=== PATIENT | female | born 1980 | race Caucasian/White ===

== ENCOUNTER → 2020-06-08 14:41 | Outpatient (CLI) | payer OTHER, SELFPAY ==
--- NOTE | 2020-06-08 14:45 | BI_ITS ---
MAMMOGRAPHY - BILATERAL SCREENING REASON FOR EXAM: Female, 40 years old. Routine annual screening examination. PERTINENT HISTORY: Non-contributory. TECHNIQUE: Digital bilateral breast rachel (3D mammographic acquisition) in the CC and MLO projections. 2-D mediolateral oblique (MLO) and craniocaudad (CC) views of both breasts were obtained. CAD: Full Field Digital Mammography with Computer Added Detection was performed. COMPARISON: None. Baseline examination. FINDINGS: Breast Composition: The breasts are heterogeneously dense, which may obscure small masses. There are no dominant masses or suspicious calcifications. No other significant abnormalities are identified. BI/SCRN MAMM (CAD)W/RACHEL BILAT IMPRESSION: Negative screening mammogram. Yearly followup mammogram recommended. (A) ASSESSMENT CATEGORY: BIRADS Category 1: Negative. A letter regarding these results will be sent to the patient by the facility within 30 days. Approximately 10% of breast cancers are not detected by mammography. A normal mammogram should not delay biopsy of a clinically suspicious abnormality. [id number] Electronically Signed: Sumanth Davidson MD at 9:58 EDT , Service support ,
== END ==
PROVIDERS: PCP Family Medicine; Referring Provider Family Medicine; Visit Provider Family Medicine
DX: Z12.31 Encounter for screening mammogram for malignant neoplasm of breast (principal)
CPT/HCPCS: 77063; 77067

== ENCOUNTER → 2022-05-19 | Outpatient (CLI) | payer OTHER, SELFPAY ==
[2022-05-19 15:04] LABS: Mucous, Urine 0 SEEN /hpf (<or=2+); Red Blood Cells-Urine 0 SEEN /hpf (0-5)
[2022-05-19 15:14] LABS: Color, Urine Yellow (Yellow); Glucose, Dipstick Normal (Normal); Ketone-Dipstick Negative (Negative); Leukocyte Esterase-Dipstick 25 /ul (Negative); Nitrite-Dipstick Negative (Negative); Occult Blood-Urine 25 /ul (Negative); Protein-Dipstick 15 mg/dl (Negative); Specific Gravity, Urine 1.015 (1.002-1.030); Urine Bilirubin Dipstick Negative (Negative); Urine Clarity Clear (Clear); Urine Urobilinogen Normal (Normal)
[2022-05-19 15:20] LABS: Bacteria 1+ /hpf (None Seen); Squamous Epithelial Cells - UA 5-10 SEEN /hpf (5-10); White Blood Cells 5-10 SEEN /hpf (0-5)
== END | disposition home or self-care (01) ==
PROVIDERS: PCP Family Medicine; Visit Provider Physician Assistant
DX: R35.0 Frequency of micturition (principal)
CPT/HCPCS: 81001; 87086; 87088

== ENCOUNTER → 2023-11-18 | Outpatient (CLI) | payer OTHER, SELFPAY ==
--- NOTE | 2023-11-18 14:59 | BI_ITS ---
MAMMOGRAPHY - BILATERAL SCREENING REASON FOR EXAM: Female, 43 years old. Routine annual screening examination. PERTINENT HISTORY: Non-contributory. TECHNIQUE: Digital bilateral breast rachel (3D mammographic acquisition) in the CC and MLO projections. 2-D mediolateral oblique (MLO) and craniocaudad (CC) views of both breasts were obtained. CAD: Full Field Digital Mammography with Computer Added Detection was performed. COMPARISON: Comparison is made with prior study June 08, 2020. FINDINGS: Breast Composition: The breasts are heterogeneously dense, which may obscure small masses. There are no dominant masses or suspicious calcifications. No other significant abnormalities are identified. There has been no significant change since the prior study. BI/SCRN MAMM (CAD)W/RACHEL BILAT IMPRESSION: Stable bilateral screening mammogram. Yearly follow-up mammogram recommended. (A) ASSESSMENT CATEGORY: BIRADS Category 1: Negative. A letter regarding these results will be sent to the patient by the facility within 30 days. Approximately 10% of breast cancers are not detected by mammography. A normal mammogram should not delay biopsy of a clinically suspicious abnormality. [id number] Electronically Signed: Sumanth Davidson MD at 8:34 EDT ,
== END | disposition home or self-care (01) ==
LOC: OPBI 14:58
PROVIDERS: PCP Family Medicine; Referring Provider Family Medicine; Visit Provider Family Medicine
DX: Z12.31 Encounter for screening mammogram for malignant neoplasm of breast (principal)
CPT/HCPCS: 77063; 77067

== ENCOUNTER → 2024-11-23 | Outpatient (CLI) | payer OTHER, SELFPAY ==
--- NOTE | 2024-11-23 14:49 | BI_ITS ---
EXAM: SCRN MAMM (CAD)W/RACHEL BILAT DATE: 11/23/2024 CLINICAL HISTORY: F, Age 44 y/o , SCREENING No family history. TECHNIQUE: Procedure Code: [id number] Modality: MG Procedure: SCRN MAMM (CAD)W/RACHEL BILAT COMPARISON: Prior exam(s) dated November 18, 2023.. FINDINGS: TISSUE DENSITY: The breasts are heterogeneously dense, which may obscure small masses. Bilateral Breast Mammographic Findings: No significant masses, calcifications or other abnormalities are identified. No suspicious masses, areas of developing architectural distortion, or suspicious calcifications. There has been no significant interval change. BI/SCRN MAMM (CAD)W/RACHEL BILAT IMPRESSION: Stable bilateral screening mammogram. OVERALL FINAL ASSESSMENT BI-RADS 1: NEGATIVE. RECOMMENDATION: Routine annual follow-up in 1 Year Additional Recommendation none A letter with findings and recommendations will be mailed to the patient. Reading Location: [place] [id number]
--- OUTSIDE RECORDS SUMMARY | 2024-11-23 17:24 | XMS RPT_ITS | CCD ---
Author Organization [facility] Inform ion Partnership [facility] Care Team Providers Care Hotbed Operator Name Role Phone RADHA Sylvester Primary Care Provider RADHA Sylvester Referring Provider POLLY Hanna Attending Provider DOMONIQUE MARIO Attending Unavailable DOMONIQUE MARIO Consulting Unavailable DOMONIQUE MARIO Primary Care Unavailable ODMONIQUE MARIO Admitting Unavailable PROVIDER, UNKNOWN Consulting Unavailable MALCOLM MAY Attending Unavailable MALCOLM MAY Primary Care Unavailable MALCOLM MAY Admitting Unavailable DOMONIQUE MARIO Consulting Unavailable PROVIDER, UNKNOWN Consulting Unavailable Domonique Sylvetser Referring Unavailable Domonique Sylvester Attending Unavailable Wesley Domonique MATIAS Primary Care Unavailable Allergies Allergy Classification Reported Allergen(s) Allergy Type Date of Onset Reaction(s) Facility (1 source) Sulfonamides (Antibiotic) Allergy to substance 3 [facility] (1 source) Sulfonamides (Antibiotic) Drug allergy (disorder) [address] [place] [address] Repository Medications Current Medications Medication Drug Class(es) Dates Sig (Normalized) Sig (Original) acetaminophen 325 mg / oxyCODONE hydrochloride 5 mg oral tablet (1 source) Opioid Agonist Start: 12-17-2013 take 1 tablet by mouth every four hours as needed Oxycodone-Acetamino phen Active 1 - 2 TABLET PO EVERY 4 HOURS NEEDED December 17, 2013 12:00am ciprofloxacin 500 mg oral tablet (1 source) Quinolone Antimicrobial Start: 05-19-2022 take 500 mg by mouth twice daily Ciprofloxacin Hcl Active 500 MG PO TWICE A DAY May 19, 2022 12:00am pt aware to discontinue macrobid at this time docusate sodium 100 mg oral capsule (1 source) Start: 12-17-2013 take 1 capsule by mouth twice daily as needed Docusate Sodium (Colace) 100 MG capsule Active 100 MG PO TWICE DAILY NEEDED December 17, 2013 12:00am nitrofurantoin, macrocrystals 25 mg / nitrofurantoin, monohydrate 75 mg oral capsule (1 source) Nitrofuran Antibacterial Start: 05-19-2022 Nitrofurantoin Monohyd/M-Cryst Active CAP PO May 19, 2022 12:00am Problems Problem Classification Problem Date Documented Da te Episodic/Chronic Genitourinary symptoms and ill-defined conditions (1 source) Increased frequency of urination; Translations: [Frequency of micturition] 05-19-2022 Episodic Malaise and fatigue (1 source) Other fatigue; Translations: [Other fatigue] Onset: 05-07-2024 Episodic Other endocrine disorders (1 source) Endocrine disorder, unspecified; Translations: [Endocrine disorder, unspecified] Onset: 05-07-2024 Episodic Other screening for suspected conditions (not mental disorders or infectious disease) (1 source) Encounter for screening mammogram for malignant neoplasm of breast; Translations: [Encounter for screening mammogram for malignant neoplasm of breast] Onset: 11-17-2024 Episodic Urinary tract infections (2 sources) Urinary tract infectious disease; Translations: [Urinary tract infection, site not specified] 05-19-2022 Episodic Results Test Name Value Interpretation Reference Range Facility TESTOSTERONE, TOTAL & FREE, SERUM [CCL]on 05-15-2024 Testosterone, % Free, S 1.72 % Normal 0.50-2.80 [facility] Comment on above: Result Comment: Test (s) [id number], Total, LC/MS was developed and its performance characteristics determined by [facility]. It has not been cleared or approved by the Food and Drug Administration. Performed at: - [address] [id number] Inspector Experimental Assembly: Xavier oNrman MD, Phone: [phone] [facility] [address] [place] [address] Teddy Mack III, M.D. [id number] Performed By: #### 2 34237 #### [facility],[address] [place] [address] Testosterone, Free, S 0.45 ng/dL Normal 0.10-0.85 [facility] Comment on above: Performed By: #### 2 35011 #### [address] [address] Testosterone, Total, S 26.4 ng/dL Normal [facility] Comment on above: Result Comment: Fema le: Premenopausal 10.0 - 55.0 Postmenopausal 7.0 - 40.0 Performed By: #### 2 10325 #### [address] [address] ESTRADIOL-17B [CCL]on 2024 Estradiol-17B 168 pg/mL Normal [facility] Comment on above: Result Comment: This test is not suitable for patients receiving treatment with the drug Fulvestrant (Faslodex). The drug causes an interference leading to falsely elevated estradiol results. Menstrual cycle Estradiol reference ranges: Follicular : < 234 pg/mL Ovulation : 41 to 398 pg/mL Luteal : < 342 pg/mL Estradiol reference ranges vary by gestational period: First trimester : 154 to 3243 pg/mL Second trimester : 1561 to 74450 pg/mL Third trimester : 8285 to >21029 pg/mL Post-menopausal Estradiol reference range: < 41 pg/mL Reference: 1. Estradiol - E2 (Estradiol III) [package insert V 3.0 Bulgarian]. [facility], [place], [place], August 2015. [facility] [place] [address] Teddy Mack III, M.D. [id number] Performed By: #### 2 16104 #### [address] [address] FERRITIN [CCL]on 05-09-2024 Ferritin [Mass/Vol] 39.4 ng/mL Normal 14.7-205.1 [facility] Comment on above: Result Comment: [facility] [address] [place] [address] Teddy Mack III, M.D. [id number] Performed By: #### 2 11984 #### [facility],[address] [place] [address] FSH [CCL]on 05-09-2024 FSH 1.6 mIU/mL Normal See comment [facility] Comment on above: Result Comment: Refe rence range: Follicular: 3.5-12.5 mIU/mL Ovulation: 4.7-21.5 mIU/mL Luteal: 1.7-7.7 mIU/mL Postmenopausal: 25.8-134.8 mIU/mL [facility] [address] [place] [address] Teddy Mack III, M.D. [id number] Performed By: #### 2 85067 #### [address] [address] SEX HORMONE BIND GLB [CCL]on 05-09-2024 Sex Hormone Bind Glb 131 nmol/L High 25-122 [facility] Comment on above: Result Comment: [facility] [address] [place] [address] Teddy Mack III, M.D. [id number] Performed By: #### 2 53270 #### [facility],[address] [place] [address] T3, FREE [CCL]on 05-09-2024 Free T3 [Mass/Vol] 2.9 pg/mL Normal 2.3-4.1 [facility] Comment on above: Result Comment: [facility] [address] [place] [address] Teddy Mack III, M.D. [id number] Performed By: #### 2 89759 #### [facility],[address] [place] [address] THYROID PEROXIDASE AB [CCL]o n 05-09-2024 TPO Antibody <3.0 Normal <5.6 [facility] Comment on above: Result Comment: Thyr oid Peroxidase Antibody test is used as an aid in diagnosis of autoimmune thyroid disease. Clinical correlation is required. [place] [address] [place] [address] Teddy Mack III, M.D. [id number] Performed By: #### 2 75309 #### [facility],[address] [place] [address] CBC + DIFFon 05-07-2024 Baso # 0.02 x10EE3/UL Normal 0.00 - 0.10 [facility] Comment on above: Performed By: #### 2 77275 #### [address] [address] Basophils/100 WBC (Bld) 0.3 % Normal 0.0 - 2.0 [facility] Comment on above: Performed By: #### 2 18190 #### [facility],[address] [place] [address] CBC + DIFF Normal [facility] Comment on above: Result Comment: CBC- COMPLETE BLOOD COUNT Performed By: #### 2 81923 #### [address] [address] EO # 0.28 x10EE3/UL Normal 0.00 - 0.50 [facility] Comment on above: Performed By: #### 2 64948 #### [facility],[address] [place] [address] Eosinophils/100 WBC (Bld) 3.9 % Normal 0.0 - 7.0 [facility] Comment on above: Performed By: #### 2 31057 #### [place] [id number] Erythrocyte distribution width (RBC) [Ratio] 13.6 % Normal 12.0 - 15.6 [facility] Comment on above: Performed By: #### 2 98164 #### [facility],[address] [place] [address] Hematocrit (Bld) [Volume fraction] 41.7 % Normal 34.0 - 46.0 [facility] Comment on above: Performed By: #### 2 89255 #### [facility],[address] [place] [address] Hemoglobin (Bld) [Mass/Vol] 14.3 g/dL Normal 12.0 - 16.0 [facility] Comment on above: Performed By: #### 2 62923 #### [facility],[address] [place] [address] Lymph # 2.06 x10EE3/UL Normal 0.80 - 2.80 [facility] Comment on above: Performed By: #### 2 53632 #### [facility],[address] [place] [address] Lymphocytes/100 WBC (Bld) 28.8 % Normal 20.0 - 45. 0 [facility] Comment on above: Performed By: #### 2 35562 #### [facility],[address] [place] [address] MANUAL DIFF N/A Normal [facility] Comment on above: Performed By: #### 2 86916 #### [facility],[address] [place], [place] [address] MCH (RBC) [Entitic mass] 30 pg Normal 27 - 33 [facility] Comment on above: Performed By: #### 2 96641 #### [facility],[address] [place], [place] [address] MCHC 34 X10 3 Normal 32 - 36 [facility] Comment on above: Performed By: #### 2 29497 #### [facility],[address] [place] [address] MCV (RBC) [Entitic vol] 86 fL Normal 80 - 99 [facility] Comment on above: Performed By: #### 2 18438 #### [facility],[address] [place] [address] Lander # 0.42 x10EE3/UL Normal 0.20 - 1.00 [facility] Comment on above: Performed By: #### 2 34204 #### [facility],[address] [place] [address] MONOS % 5.8 % Normal 0.0 - 10.0 [facility] Comment on above: Performed By: #### 2 24367 #### [facility],[address] [place] [address] Morphology Eleuterio (Bld) [Interp] N/A Normal [facility] Comment on above: Performed By: #### 2 38494 #### [facility],[address] [place] [address] Neut # 4.39 x10EE3/UL Normal 1.50 - 7.10 [facility] Comment on above: Performed By: #### 2 07360 #### [facility],[address] [place] [address] Neutrophils/100 WBC (Bld) 61.2 % Normal 46.0 - 76. 0 [facility] Comment on above: Performed By: #### 2 58275 #### [facility],[address] [place] [address] PLATELET 243 x10EE3/UL Normal 150 - 450 [facility] Comment on above: Performed By: #### 2 41000 #### [facility],[address] [place] [address] Platelet mean volume (Bld) [Entitic vol] 8.6 fL Normal 6.6 - 10.5 [facility] Comment on above: Result Comment: AUTO MATED DIFFERENTIAL Performed By: #### 2 98888 #### [facility],[address] [place] [address] RBC 4.84 x 10EE6/UL Normal 4.10 - 5.[address] [facility] Comment on above: Performed By: #### 2 91716 #### [facility],[address] [place] [address] WBC 7.2 x 10EE3/UL Normal 4.5 - 10.8 [facility] Comment on above: Performed By: #### 2 16770 #### [facility],[address] [place] [address] CMP with eGFRon 05-07-2024 AGE 43 years Normal [facility] Comment on above: Performed By: #### 2 71818 #### [facility],[address] [place] [address] Albumin [Mass/Vol] 3.9 g/dL Normal 3.4 - 5.0 [facility] Comment on above: Performed By: #### 2 67070 #### [facility],[address] [place] [address] Albumin/Globulin [Mass ratio] 1.0 {ratio} Normal 0.9 - 1.6 [facility] Comment on above: Performed By: #### 2 03701 #### [facility],[address] [place] [address] ALK PHOS 47 U/L Normal 46 - 116 [facility] Comment on above: Performed By: #### 2 96802 #### [facility],[address] [place] [address] ALT [Catalytic activity/Vol] 28 U/L Normal 16 - 63 [facility] Comment on above: Performed By: #### 2 30035 #### [facility],[address] [place] [address] Anion gap [Moles/Vol] 13 mmol/L Normal 10 - 20 [facility] Comment on above: Performed By: #### 2 01436 #### [facility],[address] [place] [address] AST [Catalytic activity/Vol] 17 U/L Normal 13 - 39 [facility] Comment on above: Performed By: #### 2 09412 #### [facility],[address] [place] [address] B/C RATIO 36 ratio High 0 - 30 [facility] Comment on above: Performed By: #### 2 22003 #### [facility],[address] [place] [address] Bilirubin [Mass/Vol] 0.2 mg/dL Normal 0.2 - 1.0 [facility] Comment on above: Performed By: #### 2 40016 #### [facility],[address] [place] [address] Calcium [Mass/Vol] 9.3 mg/dL Normal 8.5 - 10.1 [facility] Comment on above: Performed By: #### 2 02040 #### [facility],[address] [place] [address] Chloride [Moles/Vol] 103 mmol/L Normal 98 - 107 [facility] Comment on above: Performed By: #### 2 18024 #### [facility],[address] [place] [address] CMP with eGFR Normal [facility] Comment on above: Result Comment: COMP REHENSIVE METABOLIC PANEL Performed By: #### 2 46680 #### [facility],[address] [place] [address] CO2 [Moles/Vol] 26.1 mmol/L Normal 21.0 - 32.0 [facility] Comment on above: Performed By: #### 2 70290 #### [facility],[address] [place] [address] Creatinine [Mass/Vol] 0.70 mg/dL Normal 0.55 - 1.02 [facility] Comment on above: Performed By: #### 2 14233 #### [facility],[address] [place] [address] GFR/1.73 sq M.predicted among non-blacks MDRD (S/P/Bld) [Vol rate/Area] mL/min/{1.73_m2} Normal 60 - 999 [facility] Comment on above: Performed By: #### 2 80678 #### [facility],[address] [place] [address] Result Comment: ACCO RDING TO THE NATIONAL KIDNEY DISEASE EDUCATION PROGRAM(NKDE), A NORMAL eGFR IS A VALUE GREATER THAN OR EQUAL TO 60 ML/MIN/1.73 SQ METERS. CHRONIC KIDNEY DISEASE: <60mL/MIN/1.73 SQ METERS KIDNEY FAILURE: <15mL/MIN/1.73 SQ METERS THIS TEST SHOULD ONLY BE USED FOR PATIENTS 18 YEARS OF AGE AND OLDER. Globulin (S) [Mass/Vol] 3.8 g/dL Normal 1.5 - 3.8 [facility] Comment on above: Performed By: #### 2 95679 #### [address] [address] Glucose [Mass/Vol] 86 mg/dL Normal 74 - 106 [facility] Comment on above: Performed By: #### 2 29520 #### [facility],[address] [place] [address] Potassium [Moles/Vol] 4.0 mmol/L Normal 3.5 - 5.1 [facility] Comment on above: Performed By: #### 2 99827 #### [facility],[address] [place] [address] Protein [Mass/Vol] 7.7 g/dL Normal 6.4 - 8.2 [facility] Comment on above: Performed By: #### 2 78786 #### [facility],[address] [place] [address] Sodium [Moles/Vol] 138 mmol/L Normal 136 - 145 [facility] Comment on above: Performed By: #### 2 12630 #### [address] [address] Urea nitrogen [Mass/Vol] 25 mg/dL High 7 - 18 [facility] Comment on above: Performed By: #### 2 32176 #### [address] [address] T4-FREE (FREE THYROXINE)on 0 05-07-2024 Free T4 [Mass/Vol] 0.92 ng/dL Normal 0.76 - 1.46 [facility] Comment on above: Result Comment: P otential of falsely elevated results when biotin concentrations are > 10 ng/mL. Performed By: #### 2 98986 #### [address] [address] TSHon 05-07-2024 TSH Qn 2.04 m[IU]/L Normal 0.35 - 3.74 [facility] Comment on above: Performed By: #### 2 20294 #### [address] [address] VITAMIN B-12on 05-07-2024 Cobalamin (Vitamin B12) [Mass/Vol] 587 pg/mL Normal 193 - 986 [facility] Comment on above: Performed By: #### 2 12322 #### [address] [address] VITAMIN D, 25 HYDROXYon 03-0 VitD 31.40 ng/mL Normal 30.00 - 100 [facility] Comment on above: Result Comment: 25-O HD3 indicates both endogenous production and supplementation. 25-OHD2 is an indicator of exogenous sources, such as diet or supplementation. Therapy is based on measurement of Total 25-OHD, with levels <20 ng/mL indicative of Vitamin D deficiency, while levels between 20 ng/mL and 30 ng/mL suggest insufficiency. Optimal levels are >=30ng/mL. Vitamin D, 25-OH D3 Not Established Vitamin D, 25-OH D2 Not Established Performed By: #### 2 42749 #### [address] [address] Culture, urineOrdered By: St jean marie Jenkins on 05-21-2022 Bacteria identified Cx Nom (U) Mixed Gram Pos & Gram Neg Org [facility] Basophil percentageOrdered B y: Inocencio Jenkins on 05-19-2022 Basophil percentage 5-10 SEEN /hpf 0-5 [facility] Bilirubin Test strip Ql (U)O rdered By: Inocencio Jenkins on 05-19-2022 Bilirubin Ql (U) Negative Negative [facility] Ketones Test strip Ql (U)Ord ered By: Inocencio Jenkins on 05-19-2022 Ketones Ql (U) Negative Negative [facility] Laboratory - Chemistry and C hemistry - challengeon 05-19-2022 Bilirubin Ql (U) Small (1+) [facility] Glucose Ql (U) Negative [facility] Ketones Ql (U) Negative [facility] pH (U) 6.5 [pH] [facility] Specific gravity (U) [Rel density] 1.015 [facility] Urobilinogen (U) [Mass/Vol] 0.7329641 mg/dL [facility] - Hematology and Cell countson 05-19-2022 Hemoglobin Ql (U) Moderate [facility] - Specimen inform ationon 05-19-2022 Clarity (U) Clear [facility] Color (U) YELLOW [facility] Laboratory - Urinalysison Nitrite Ql (U) Negative [facility] Protein Ql (U) Negative [facility] Mucus LM Ql (Urine sed)Order ed By: Inocencio Jenkins on 05-19-2022 Mucus Ql (Urine sed) 0 SEEN /hpf [facility] Nitrite Test strip Ql (U)Ord ered By: Inocencio Jenkins on 05-19-2022 Nitrite Ql (U) Negative Negative [facility] No Panel Informationon 05-19 Urine Leukocytes Positive [facility] Urine Non-Hemolyzed Blood Non-Hemolyzed [facility] Protein Test strip Ql (U)Ord ered By: Inocencio Jenkins on 05-19-2022 Protein Ql (U) 15 mg/dl Negative [facility] Squamous epithelial cells de tection in urine sediment by light microscopyOrdered By: Inocencio Jenkins on 05-19-2022 Epithelial cells.squamous LM Ql (Urine sed) 5-10 SEEN /hpf 5-10 [facility] Urine blood detectionOrdered By: Inocencio Jenkins on 05-19-2022 RBC Ql (U) 25 /ul Negative [facility] RBC Ql (U) 0 SEEN /hpf 0-5 [facility] Urine clarityOrdered By: Reggie Jenkins on 05-19-2022 Clarity (U) Clear Clear [facility] Urine color determinationOrd ered By: Inocencio Jenkins on 05-19-2022 Color (U) Yellow Yellow [facility] Urine glucose detectionOrder ed By: Inocencio Jenkins on 05-19-2022 Glucose Ql (U) Normal mg/dl Normal [facility] Urine leukocyte esterase det ection by dipstickOrdered By: Inocencio Jenkins on 05-19-2022 Leukocyte esterase Test strip Ql (U) 25 /ul Negative [facility] Urine pHOrdered By: Inoecncio ochoa on 05-19-2022 pH (U) 7.0 [pH] 5.0 - 8.0 [facility] Urine sediment bacteria coun t by microscopy (number/high power field)Ordered By: Inocencio Jenkins on 05-19-2022 Bacteria LM.HPF (Urine sed) [#/Area] 1 /[HPF] None Seen [facility] Urine specific gravity measu rementOrdered By: Inocencio Jenkins on 05-19-2022 Specific gravity (U) [Rel density] 1.015 1.002-1.030 [facility] Urobilinogen Auto test strip Ql (U)Ordered By: Inocencio Jenkins on 05-19-2022 Urobilinogen Ql (U) Normal mg/dl Normal [facility] Vital Signs Date Time Vital Sign Value Performing Clinician Faci lity 05-19-2022 12:27-0400 Body height 160.02 cm PAYurpy Work Phone: [facility] 05-19-2022 12:27-0400 Body mass index (BMI) [Ratio] 27.3 kg/m2 PATailster PA Work Phone: [facility] 05-19-2022 12:27-0400 Body temperature 98.9 [degF] PA-C Enablon PA Work Phone: [facility] 05-19-2022 12:27-0400 Body weight 69.85 kg PA-C Domonique Wesley PA Work Phone: [facility] 05-19-2022 12:27-0400 Diastolic blood pressure 72 mm[Hg] PA-C Domonique Wesley PA Work Phone: [facility] 05-19-2022 12:27-0400 Heart rate 102 /min PA-C Domonique Wesley PA Work Phone: [facility] 05-19-2022 12:27-0400 Respiratory rate 14 /min PA-C Domonique Wesley PA Work Phone: [facility] 05-19-2022 12:27-0400 SaO2% (BldA) [Mass fraction] 98 % PA-C Domonique Wesley PA Work Phone: [facility] 05-19-2022 12:27-0400 Systolic blood pressure 116 mm[Hg] PA-C Domonique Wesley PA Work Phone: [facility] Encounters Encounter Date Encounter Type Care Provider Facility Start: 11-23-2024 ambulatory Enablon PA Facil ity:[facility]: 05-07-[facility]24 End: 05-07-2024 ambulatory [facility] Start: 05-07-2024 End: 05-07-2024 Encounter for general adult medical examination without abnormal findings [facility] Start: 05-19-2022 End: 05-19-2022 ambulatory PA-C Domonique Wesley PA Work Phone: [facility] Work Phone: Start: 05-19-2022 End: 05-19-2022 Patient encounter procedure PA-C Domonique Wesley PA Work Phone: [facility]-Laboratory, Specimen Start: 05-19-2022 End: 05-19-2022 Patient encounter procedure RADHA MATIAS Work Phone: [facility] Procedures Date Procedure Procedure Detail Performing Clinician Urine culture RADHA MATIAS Work Phone: Plan of Treatment Date Care Activity Detail Author [facility] Immunizations Immunization Date Immunization Notes Care Provider Fa guerita 12-17-2013 Influenza virus vaccine RADHA MATIAS Work Phone: [facility] Payers Date Payer Category Payer Self-pay [id number] 2024 Unknown [id number] 1980 Unknown [id number] [id number] 1980 Unknown [id number] [id number] Unknown [id number] Unknown [id number] [id number] Social History Date Type Detail Facility Start: 05-19-2022 Tobacco smoking stat [facility] Unknown if ever smoked [facility] Start: 1980 Sex Assigned At Female [facility] Evaluation note Note Date & Type Note Facility Evaluation note Diagnosis Onset Date Urinary tract infection acut e [facility] Work Phone: Chief Complaint and Reason for Visit Chief Complaint CONCERN FOR UTI/JUST FINISHED ANTIBIOTICS Reason for Visit Urinary tract infect ion Advance Directives No Advanced Directives Records Found Advance Directive Response Recorded Date/ Time Advance Directives No May 19 12:04pm Living Will No May 19, 2022 12:04pm Power of Soyfreeze Operator No May 19 12:04pm Summary Purpose Family History No Family History Records FoundNo Family History Records Found Additional Source Comments Care Teams (unrecognized sec tion and content) Team Status: Active Member Role Status Dates Domonique Wesley PA, PA-C Primary Care Provider Active Team Status: Inactive Member Role Status Dates POLLY Jacobo-Laurita Primary Care Provider, Referri ng Provider Active POLLY Hu Attending Provider Active Team Status: Inactive Member Role Status Dates Domonique MATIAS PA-C Primary Care Provider Active POLLY Hu Attending Provider Active Goals (unrecognized section and content) Goals may be documented in a n alternate section INFORMATION SOURCE (unrecogn ized section and content) DATE CREATED AUTHOR [facility]/18/2024 [facility] DATE CREATED AUTHOR AUTHOR'S LISA ATION 11/19/2024 [facility] FOR RECORDS PERTAINING TO PATIENTS WHO ARE OR HAVE BEEN ENROLLED IN A CHEMICAL DEPENDENCY/SUBSTANCEABUSE PROGRAM, SOME INFORMATION MAY BE OMITTED. This clinical summary was aggregated from multiple sources. Caution should be exercised in using it in the provision of clinical care. This summary normalizes information from multiple sources, and as a consequence, information in this document may materially change the coding, format and clinical context of patient data. In addition, data may be omitted in some cases. CLINICAL DECISIONS SHOULD BE BASED ON THE PRIMARY CLINICAL RECORDS. [email or web address] provides no warranty or guarantee of the accuracy or completeness of information in this document.
== END | disposition home or self-care (01) ==
LOC: OPBI 14:47
PROVIDERS: PCP Family Medicine; Referring Provider Family Medicine; Visit Provider Family Medicine
DX: Z12.31 Encounter for screening mammogram for malignant neoplasm of breast (principal)
CPT/HCPCS: 77063; 77067